=== PATIENT | male | born 1995 | race African-American/Black ===

== ENCOUNTER 2017-02-02 16:06 | Inpatient (IN) | payer OTHER, SELFPAY ==
[~2017-02-02 16:06] MED LIST: CEFAZOLIN 1 GM VIAL ONE; Lidocaine 1% PF 5 ML VIAL ONE; PHENYLEPHRINE-NS 100 MCG/ML 10 ML SYRINGE ONE; Propofol 200 MG/20 ML VIAL ONE; Sterile Water 10 ML VIAL ONE; Succinylcholine Chloride 20 MG/ML 10 ml SYRINGE FS ONE
[2017-02-02 16:36] LABS: Hematocrit 43.2 % (42.0-52.0); Mean Platelet Volume 6.9 fL (7.4-10.4); Red Blood Cell (RBC) Count 4.79 mill/uL (4.70-6.10)
[2017-02-02 16:46] LABS: ALT (SGPT) 50 U/L (8-55); AST (SGOT) 42 U/L (5-34); Alkaline Phosphatase 53 U/L (40-150); Anion Gap 16 mmol/L (10-20); BUN (Urea Nitrogen) 10 mg/dL (8.9-20.6); Bilirubin, Total 0.7 mg/dL (0.2-1.2); Calc. Creatinine Clearance 0 mL/min (70-130); Carbon Dioxide 20 mmol/L (22-29); Chloride 107 mmol/L (98-107); Estimated GFR-MDRD 85; Globulin 3.1 g/dL (2.4-3.5); Lipase 15 U/L (8-78); Protein, Total 7.4 g/dL (6.0-8.3)
[2017-02-02 16:55] LABS: Band 23 % (5-11); Neutrophil 68 % (42-75); Reactive Lymphocytes 4 % (0-10)
[2017-02-02 16:57] LABS: PTT 29.1 SEC (22.9-36.1); Prothrombin Time 14.6 SEC (12.0-14.7)
[2017-02-02] MEDS ORDERED: Fentanyl 100 MCG/2 ML VIAL ONE ×4 (17:08→21:06)
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
[2017-02-02] MEDS ORDERED: Dextrose 50% Abboject 50 ML SYRINGE SLOW IVP PRN (17:09)
[2017-02-02] MEDS ORDERED: Dextrose 5% in Water 1,000 ML IV PRN (17:09)
[2017-02-02] MEDS ORDERED: traMADol HCl 50 MG TAB PO PRN (17:09)
[2017-02-02] MEDS ORDERED: Ondansetron ODT 4 MG TAB PO PRN (17:11)
[2017-02-02] MEDS ORDERED: Ondansetron HCl/PF 4 MG/2 ML Vial IVP PRN ×2 (17:11→19:14)
[2017-02-02] MEDS ORDERED: Promethazine HCl 25 MG/ML VIAL IM PRN ×2 (17:11→19:14)
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
[2017-02-02] MEDS ORDERED: Morphine 2 mg/2ml in 0.9% NaCl PF SYRINGE ONE (17:57)
[2017-02-02] MEDS ORDERED: Ketorolac Tromethamine 30 MG/ML VIAL ONE (17:58)
[2017-02-02] MEDS ORDERED: Midazolam HCl 2 mg/2 ml Vial ONE (18:12)
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
[2017-02-02] MEDS ORDERED: Promethazine HCl 25 MG/ML VIAL SLOW IVP PRN (19:14)
[2017-02-02] MEDS ORDERED: HYDROmorphone 2 MG/ML VIAL SLOW IVP PRN (19:14)
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
[2017-02-02] MEDS ORDERED: Ondansetron HCl/PF 4 MG/2 ML Vial ONE (20:54)
--- NOTE | 2017-02-02 21:19 | RAD ---
RIGHT FEMUR INTRAOPERATIVE FLUOROSCOPY: History: Femur fracture. FINDINGS: Intraoperative fluoroscopy was provided for internal fixation as performed by Dr. Duffy. Multiple sp ot fluoroscopic images shows placement of a long medullary allie transfixing the femoral shaft fracture in anatomic alignment. Fluoro time = 2 minutes. POS: [facility]
[2017-02-02] MEDS ORDERED: CEFAZOLIN 2 GM in Sodium Chloride 0.9% 100 ML IVPB SCH (22:00)
[2017-02-02] MEDS ORDERED: CEFAZOLIN/Water 2 GM/20 ML SYRINGE SLOW IVP SCH (22:00)
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
[2017-02-02] MEDS: Fentanyl 100 MCG/2 ML VIAL SLOW IVP PRN (22:09)
[2017-02-02] MEDS: Ibuprofen 800 MG TAB PO SCH (22:12)
[2017-02-02] MEDS: Famotidine 20 MG TAB PO SCH (22:12)
[2017-02-02] MEDS: Acetaminophen 500 MG TAB PO SCH (22:12)
[2017-02-02] MEDS: Sodium Chloride 0.9% 1,000 ML IV SCH (22:13)
[2017-02-02] MEDS: traMADol HCl 50 MG TAB PO PRN (22:48)
[2017-02-02 23:12] VITALS: BMI 28.3
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
[2017-02-03] MEDS: Fentanyl 100 MCG/2 ML VIAL SLOW IVP PRN ×6 (00:14→14:10)
[2017-02-03] MEDS: CEFAZOLIN/Water 2 GM/20 ML SYRINGE SLOW IVP SCH ×2 (03:09→12:10)
[2017-02-03] MEDS: Acetaminophen 500 MG TAB PO SCH ×4 (03:09→23:13)
[2017-02-03] MEDS: traMADol HCl 50 MG TAB PO PRN (04:52)
[2017-02-03 05:31] LABS: #Monocytes 0.8 thou/uL (0.11-0.59); #Neutrophils 9.3 thou/uL (1.40-6.50); %Basophils 0.3 % (0.0-1.0); %Eosinophils 0.3 % (0.0-10.0); %Lymphocytes 8.7 % (21.0-51.0); %Monocytes 7.3 % (0.0-10.0); Hematocrit 39.9 % (42.0-52.0); Mean Platelet Volume 7.1 fL (7.4-10.4); White Blood Cell (WBC) Count 11.2 thou/uL (4.8-10.8)
[2017-02-03 06:01] LABS: Anion Gap 12 mmol/L (10-20); BUN (Urea Nitrogen) 10 mg/dL (8.9-20.6); Calc. Creatinine Clearance 153 mL/min (70-130); Calcium 8.7 mg/dL (7.8-10.44); Carbon Dioxide 23 mmol/L (22-29); Chloride 106 mmol/L (98-107); Estimated GFR-MDRD Greater than 90; Magnesium 1.7 mg/dL (1.6-2.6); Phosphorus 3.8 mg/dL (2.3-4.7)
[2017-02-03] MEDS: Sodium Chloride 0.9% 1,000 ML IV SCH (06:03)
[2017-02-03] MEDS: Ibuprofen 800 MG TAB PO SCH ×2 (06:06→14:11)
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
[2017-02-03] MEDS: Famotidine 20 MG TAB PO SCH ×2 (08:42→23:13)
[2017-02-03] MEDS ORDERED: Fentanyl 250 MCG/5 ML VIAL ONE ×2 (08:56→16:35)
[2017-02-03] MEDS ORDERED: FLU VACC QS2017-18 36 mo. & older 0.5 ML SYRINGE IM ONE (09:00)
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
[2017-02-03] MEDS ORDERED: Thrombin 5000 UNITS/5 ML VIAL ONE ×2 (10:58→19:03)
[2017-02-03] MEDS ORDERED: Sodium Chloride 0.9% 10 ML ONE (10:58)
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
[2017-02-03] MEDS ORDERED: CEFAZOLIN/Water 2 GM/20 ML SYRINGE SLOW IVP SCH ×2 (11:30→22:00)
--- NOTE | 2017-02-03 12:36 | MRI ---
CERVICAL SPINE MRI WITHOUT CONTRAST: Date: 02/03/17 HISTORY: Acute fracture of cervical spine seen on recent CT examination. TECHNIQUE: Multiplanar, multisequence MR imaging of the cervical spine provided without contrast media. FINDINGS: The previously noted burst fracture of the C7 vertebral body seen on prior CT examination is again se en. This burst fracture demonstrates posterior contour abnormality of the C7 vertebral body with retr opulsion of osseous fragments into the central canal and a mild degree of associated central canal st enosis. STIR signal throughout the C7 vertebral body is consistent with acute fracture. There is trau matic edema also seen within bilateral pedicles of the C7 vertebral body. STIR imaging demonstrates increased T2 signal in the region of the interspinous ligament at C6-7, con sistent with interspinous ligament disruption. There is also fluid signal intensity in the region of the facet joint on the left at C6-7 suggesting traumatic disruption with no associated facet joint di slocation. The STIR imaging also demonstrates abnormal increased signal intensity within the superior and mid po rtion of the T1 and T3 vertebral bodies, evidence of fractures in these regions. There is mild increased STIR signal in the region of the interspinous ligament at T1-2 and T2-3, sugg esting possible interspinous ligament injury in these regions as well. There is no significant anterolisthesis or retrolisthesis seen within the cervical spine. C2-3: No significant central canal or neural foraminal stenosis. Intervertebral disc height and signal inte nsity appears within normal limits. C3-4: Intervertebral disc height and signal intensity appears within normal limits with no significant cent ral canal or neural foraminal stenosis. C4-5: Intervertebral disc height and signal intensity is within normal limits with no significant central c anal or neural foraminal stenosis. C5-6: Intervertebral disc height and signal intensity is within normal limits with no significant central c anal or neural foraminal stenosis. STIR imaging demonstrates increased signal intensity just to the right of midline of the C5 spinous p rocess, evidence of soft tissue edema on the basis of acute trauma. C6-7: Intervertebral disc height and signal intensity is within normal limits with no significant central c anal or neural foraminal stenosis. Evidence of interspinous ligament disruption at C6-7 noted as abov e. No evidence for facet dislocation on either side. Osseous retropulsion associated with C7 burst fracture causes mild central canal stenosis at the C7 l evel. C7-T1: No significant central canal or neural foraminal stenosis. No focal area of signal abnormality is identified within the cervical cord. Degree of anterior vertebral body height loss at C7 is in the 35-40% range. There is mild increased STIR signal in the region of the interspinous ligament at the C1-2 level whic h may represent an additional area of ligamentous disruption. IMPRESSION: C7 burst fracture with retropulsion of osseous fragments into the central canal and a mild degree of associated central canal stenosis. Configuration suggests flexion teardrop injury. Increased signal intensity on STIR imaging in the region of the interspinous ligament at C6-7 is consistent with trau matic disruption. There is adjacent edema within the paraspinal soft tissues. Fluid in the region of the left facet joint at C6-7 suggests traumatic disruption with no evidence fo r facet joint subluxation or dislocation. There is evidence of acute fracture of T1 and T3 vertebral bodies with no significant vertebral body height loss. In addition, mild increased STIR signal in the region of the interspinous ligament at T1 -2 and T2-3 may represent additional areas of ligamentous injury. There is questionable evidence of interspinous ligament edema at C1-2 as detailed above as well. POS: KILLIAN
[2017-02-03] MEDS ORDERED: Lidocaine 1% PF 5 ML VIAL ONE (13:57)
[2017-02-03] MEDS ORDERED: Sterile Water 10 ML VIAL ONE (13:57)
[2017-02-03] MEDS ORDERED: ePHEDrine/0.9% NaCl/PF SYRINGE 50 mg/10 ml ONE (13:57)
[2017-02-03] MEDS ORDERED: PHENYLEPHRINE-NS 100 MCG/ML 10 ML SYRINGE ONE (13:57)
[2017-02-03] MEDS ORDERED: Propofol 200 MG/20 ML VIAL ONE (13:57)
[2017-02-03] MEDS ORDERED: Dexamethasone 20 MG/5 ML VIAL ONE (13:57)
[2017-02-03] MEDS ORDERED: CEFAZOLIN 1 GM VIAL ONE (13:57)
[2017-02-03] MEDS ORDERED: Glycopyrrolate 0.2 MG/ML 5 ML SYRINGE ONE (13:57)
[2017-02-03] MEDS ORDERED: Vecuronium 10 MG VIAL ONE ×2 (13:57→20:24)
[2017-02-03] MEDS ORDERED: CEFAZOLIN/Water 2 GM/20 ML SYRINGE ONE (16:10)
[2017-02-03] MEDS ORDERED: Fentanyl 100 MCG/2 ML VIAL ONE ×3 (16:25→22:05)
[2017-02-03] MEDS ORDERED: Bacitracin Zinc Ointment 30 gm TUBE ONE (16:34)
[2017-02-03] MEDS ORDERED: Midazolam HCl 2 mg/2 ml Vial ONE (16:46)
[2017-02-03] MEDS ORDERED: Bupivacaine/Epinephrine 0.25% 30 ML VIAL ONE (20:45)
[2017-02-03] MEDS ORDERED: Morphine 4 MG/ML VIAL SLOW IVP PRN (21:09)
[2017-02-03] MEDS ORDERED: Ondansetron HCl/PF 4 MG/2 ML Vial IVP PRN (21:21)
[2017-02-03] MEDS ORDERED: Promethazine HCl 25 MG/ML VIAL SLOW IVP PRN (21:21)
[2017-02-03] MEDS ORDERED: Promethazine HCl 25 MG/ML VIAL IM PRN (21:21)
[2017-02-03] MEDS: Morphine 4 MG/ML VIAL SLOW IVP PRN (23:18)
[2017-02-04] MEDS: Ibuprofen 800 MG TAB PO SCH ×4 (00:38→20:33)
[2017-02-04] MEDS: Acetaminophen 500 MG TAB PO SCH ×4 (00:48→20:16)
[2017-02-04] MEDS: traMADol HCl 50 MG TAB PO PRN ×4 (00:49→20:15)
[2017-02-04] MEDS: CEFAZOLIN/Water 2 GM/20 ML SYRINGE SLOW IVP SCH ×2 (00:51→08:46)
--- NOTE | 2017-02-04 01:10 | OP ---
DATE OF PROCEDURE: 02/03/2017 SURGEON: Kaley Gomes M.D. PERMIT COORDINATOR: Joshua Mckeon PA-C PREOPERATIVE INDICATION: Prevent neurological deterioration. PREOPERATIVE DIAGNOSES: C6-C7 teardrop fracture with a complete ligamentous injury posteriorly, unst able. POSTOPERATIVE DIAGNOSIS: C6-C7 teardrop fracture with a complete ligamentous injury posteriorly, uns table. OPERATIVE PROCEDURES: 1. Anterior cervical diskectomy, intervertebral arthrodesis, placement of intervertebral biomechanic al device, anterior cervical plating C6-C7, local morselized autograft, morselized allograft. 2. Posterolateral arthrodesis C6-C7 with lateral mass screws and rods, local morselized autograft, m orselized allograft. PREOPERATIVE MEDICATION: Ancef 2 grams IV. DRAIN NUMBER: Zero. DRAIN TYPE: None. OPERATIVE DICTATION: The patient was brought to the operating room. General endotracheal anesthesia was induced. Keeping the neck in normal anatomic alignment, the patient was placed supine on the op erating table with his head supported by gel-filled donut shaped head rest. A lateral fluoro radiogr aph was used to plan our incision. The right side of the neck was sterilely prepped and draped. We opened our incision with a 10 blade knife and controlled bleeding with bipolar and cautery. We disse cted sharply to the platysma and cut this muscle in line with our incision. Then we continued our di ssection medial to the sternocleidomastoid, lateral to the trachea and esophagus all the way down to the prevertebral space. We placed a marker at C5-C6 and took a lateral fluoro radiograph to confirm the level upon which we were operating. We counted down from C5-C6 to C6-C7. We elevated the longus colli muscles off the anterior surface of C6 and C7. We placed a distraction pin at the bottom of C 6 and the bottom of C7 and distracted across the intervening interspace. We incised the interspace w ith a 15 blade knife and removed disk contents using curettes and rongeurs. At the anterior superior corner C7 came out with the disk. It was loose. Bone bleeding was controlled with a high-speed dri ll and ranjan bit along with Gelfoam. As we approached the posterior longitudinal ligament during o ur diskectomy, the operative microscope was brought into the field. Under microscopic magnification and using microsurgical techniques, we removed the remainder of the i ntervertebral disk. We removed the posterior longitudinal ligament enough to place a [place] ball pro be behind it and probed for any disk material in the canal. There was none. We removed posterior os teophytes and sharp bone from one neural foramen all the way to the other. In the lateral aspect of the uncovertebral joint, we left some joint capsule and some lateral posterior longitudinal ligament. There was no dural compression. We turned our attention to arthrodesis. We shaped the bone to accept our intervertebral graft. The C7 fractured bone was still quite strong and could easily hold the graft as well as screws. We measured the height of the interspace to 9 mm. A 9 mm PEEK graft was brought into the field. A portion of the C7 vertebral body that was removed along with the posterior osteophytes were carefully morselized on the back table after soft tissue wa s removed from the bone. This morselized bone was added to demineralized bone matrix as our fusion s ubstrate and impacted into our PEEK graft. The PEEK graft was advanced into the interspaces under ra diographic guidance to the appropriate depth. Distraction pins were removed. We brought a 16 mm ant erior cervical plate into the field. We drilled commercial airplane pilot holes through the plate into the vertebral seg ments of C6 and C7. The screws were placed at the bottom of each of the vertebral bodies. We placed 14 mm screws through the plate into our drill holes and engaged the locking mechanism over each of t he 4 screws. We irrigated copiously with bacitracin irrigation. We closed this wound in anatomic la yers and we applied a sterile dressing. We then began the second operation. OPERATION #2: Morales marco antonio headholder was attached to the patient's head. He was carefully yen d from one operating table to the other in a prone position with his chest and hips supported by gel- filled chest rolls. The head was immobilized with Throckmorton attachments for the second operating tabl e. A lateral fluoro radiograph was used to plan our incision. The back of the neck was sterilely pr epped and draped. We opened our incision with a 10 blade knife and controlled bleeding with bipolar and monopolar cautery. We used monopolar cautery to dissect through the ligamentum nuchae. We refle cted the paraspinal muscles off the spinous process and lamina of C7 and C6. We dissected the C5, so that we could put a marker at C5 and took a lateral fluoro radiograph to confirm the level upon whic h we were operating. We identified the lateral mass of C6 and C7. We found the midpoint of each of the lateral masses and drilled the commercial airplane pilot holes. We then took a 12 mm drill and advanced our screw tr ajectory superiorly and laterally in the lateral masses of C6 and C7. We probed each trajectory and found it completely encased in bone. We placed 14 mm lateral mass screws at C6 and C7. Rods were br ought down in the screw heads and caps tightened over the rods. We used very gentle compression acro ss the interspace before final tightening. A lateral fluoro radiograph confirmed adequate position o f this instrumentation as well. We irrigated the wound copiously with bacitracin irrigation. We dec orticated the lamina, spinous process and lateral masses of C6 and C7 and over all of the decorticate d bone, we left demineralized bone matrix and morselized autograft as our fusion substrate. We infus ed local anesthetic in the paraspinal muscles. We closed the wound in anatomic layers and applied a sterile dressing. This was a clean case and no contamination.
[2017-02-04] MEDS: Morphine 4 MG/ML VIAL SLOW IVP PRN (03:36)
[2017-02-04] MEDS ORDERED: Cepastat Lozenges 1 LOZ PO PRN (06:46)
--- NOTE | 2017-02-04 07:57 | ADD-OP ---
ADDENDUM OPERATION PERFORMED: 2. Open reduction internal fixation of C6-C7 teardrop fracture.
[2017-02-04] MEDS: Famotidine 20 MG TAB PO SCH ×2 (08:41→20:17)
[2017-02-04] MEDS: Cyclobenzaprine 10 MG TAB PO PRN (09:38)
--- NOTE | 2017-02-04 09:44 | PRG ---
DATE OF SERVICE: 02/04/2017 Mr. Borrero is 1 day out from anterior to posterior open reduction internal fixation of C6-C7 teardrop f racture with posterior ligamentous disruption. I am seeing him this morning with complaint of pain i n his throat when he swallows. He does not have radicular pains. He does have numbness or weakness in the arms. His vitals have been stable. On examination, he has full strength in the deltoids, biceps, triceps, wrist extensors, finger extens ors, and interossei. There is no area dermatomal sensory loss. There are no long tract signs. I would like Mr. Borrero to begin mobilization right away. We will add Cepacol lozenges or spray to hel p with his throat, continued swallowing will help that get better. The collar can be off for showers . Dressings can be removed later today or tomorrow then he can start showering thereafter. I encour aged him to mobilize as soon as possible and he can be discharged at any point from a neurosurgical p erspective. We will follow up in our [place] clinic.
--- NOTE | 2017-02-04 10:51 | PRG ---
DATE OF SERVICE: 02/04/2017 I saw Mr. Borrero in his room this morning. He has had a little bit of pain and he is receiving morphin e for his pain at this time. He is 1 day out from an open reduction and internal fixation of the C6- C7 teardrop fracture and posterior instrumentation for C6-C7. This morning, he has good strength in his upper extremities. He does not really complain of any radicular pain in his upper extremities or sensation loss. He has a cervical collar in place. There are no new neurologic deficits on exam. His vital signs have been stable overnight and there have been no acute events overnight. He can sta rt to work with physical therapy today and ambulate as much as possible. I talked to the family in t he room and explained incisional care to both mom and dad. If there are any further questions, margarita cummins feel free to contact Neurosurgery.
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
[2017-02-04] MEDS: Senokot S 8.6-50 MG TAB PO SCH (20:17)
[2017-02-05] MEDS: Acetaminophen 500 MG TAB PO SCH ×4 (02:11→20:43)
[2017-02-05] MEDS: traMADol HCl 50 MG TAB PO PRN ×3 (02:12→20:44)
[2017-02-05] MEDS: Ibuprofen 800 MG TAB PO SCH ×3 (06:31→20:43)
[2017-02-05] MEDS: Famotidine 20 MG TAB PO SCH ×2 (07:59→20:44)
[2017-02-05] MEDS: Senokot S 8.6-50 MG TAB PO SCH ×2 (08:00→20:43)
[2017-02-05] MEDS: Polyethylene Glycol 3350 17 GM Packet PO SCH (08:00)
--- NOTE | 2017-02-05 09:19 | PRG ---
NEUROSURGERY PROGRESS NOTE DATE OF SERVICE: 02/05/2017 Mr. Borrero is 2 days out from an anterior posterior fusion of the cervical spine for unstable teardrop fracture with posterior ligamentous disruption. Mr. Borrero got out of bed yesterday and was ambulatory. Second time he walked was much better than the first. He feels great. His sore throat is dissipating nicely. Mr. Borrero can have his bandages removed. Once he is safe for his activities of daily living, he can b e discharged as early as today. Followup will be arranged in our [place] office. A shower chair m ight make showers safer for him. He can shower without his collar, but I would like it on the rest o f the time for the first 2 months after his operation.
--- NOTE | 2017-02-05 10:06 | PRG ---
Mr. Borrero is a 21-year-old male I saw on his room this morning. Overnight, there have been no acute e vents. His vital signs are stable and his pain is well under control with pain medication. He has a [place] J cervical collar in place. This morning, I took his dressings off to allow his incisions panchito ride. He is okay to get a shower. He can be discharged anytime. We will follow up in [facility] posterior staple removal in approximately 2 weeks at our clinic there. If there are any further qu estions, please feel free to contact Neurosurgery.
[2017-02-05] MEDS: Cyclobenzaprine 10 MG TAB PO PRN (14:24)
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
[2017-02-06] MEDS: Acetaminophen 500 MG TAB PO SCH ×3 (03:11→14:54)
--- NOTE | 2017-02-06 06:39 | PRG ---
DATE OF SERVICE: 02/06/2017 Mr. Borrero is a 21-year-old male who is status post 3 days out from an anterior posterior fusion on the cervical spine for unstable teardrop fracture and posterior ligamentous disruption. He was able to ambulate with physical therapy yesterday approximately 600 feet with a walker. He is able to tolerat e a regular diet and his pain is well controlled with pain medication. His incisions look clean, dry , and intact. He has good strength in the upper and lower extremities bilaterally and there are no n ew neurologic deficits on exam. His vital signs overnight have been stable. The patient is doing pretty well for his age and state of health. We will wait for physical therapy' s recommendation on rehab and if he is not eligible for rehab, then he can be discharged today. If there are any further questions, please feel free to contact Neurosurgery.
[2017-02-06] MEDS: Ibuprofen 800 MG TAB PO SCH ×2 (06:45→14:54)
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
[2017-02-06] MEDS: Polyethylene Glycol 3350 17 GM Packet PO SCH (09:23)
[2017-02-06] MEDS: Senokot S 8.6-50 MG TAB PO SCH (09:24)
[2017-02-06] MEDS: Famotidine 20 MG TAB PO SCH (09:24)
[2017-02-06 11:43] VITALS: BP 126/81; TEMP 98.7
[2017-02-06] MEDS: traMADol HCl 50 MG TAB PO PRN (14:54)
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
[2017-02-06] MEDS: Cyclobenzaprine 10 MG TAB PO PRN (16:11)
== END 2017-02-06 16:40 | disposition home or self-care (01) | DRG 956 ==
LOC: ERS 16:06 → EDBD 16:06 → SURG A 18:47 → SDC/OP 18:49 → SURG A 21:03
PROVIDERS: ADMIT Specialist; ATTEND Specialist
PROC: 0QS804Z Reposition Right Femoral Shaft with Internal Fixation Device, Open Approach (ICD-10-PCS; 2017-02-02)
PROC: 0RB30ZZ Excision of Cervical Vertebral Disc, Open Approach (ICD-10-PCS; principal; 2017-02-03)
PROC: 0RG10A0 Fusion of Cervical Vertebral Joint with Interbody Fusion Device, Anterior Approach, Anterior Column, Open Approach (ICD-10-PCS; 2017-02-03)
PROC: 0PS304Z Reposition Cervical Vertebra with Internal Fixation Device, Open Approach (ICD-10-PCS; 2017-02-03)
DX: S12.690A Other displaced fracture of seventh cervical vertebra, initial encounter for closed fracture (principal); S72.351A Displaced comminuted fracture of shaft of right femur, initial encounter for closed fracture; S27.322A Contusion of lung, bilateral, initial encounter; S27.0XXA Traumatic pneumothorax, initial encounter; V43.62XA Car passenger injured in collision with other type car in traffic accident, initial encounter; Y92.413 State road as the place of occurrence of the external cause; S00.11XA Contusion of right eyelid and periocular area, initial encounter; S13.4XXA Sprain of ligaments of cervical spine, initial encounter
CPT/HCPCS: 36415; 71010; 72141; 72170; 76001; 80048; 80053; 83605; 83690; 83735; 84100; 85025; 85610; 85730; 86850; 86900; 86901; 90471; 90682; 93005; 94760; 96374; 96375; A4216; C1713; C1768; C1769; G0008; G0390; G8978-GP-CL; G8979-GP-CJ; G8987-GO-CK; G8988-GO-CI; J0690; J1100; J1885; J2001; J2250; J2270; J2405; J2704; J3010; J3490; Q2036